=== PATIENT | female | born 1955 | race Caucasian/White ===

== ENCOUNTER 2022-11-05 08:53 | Emergency (ER) | payer BC, MEDICARE ==
[~2022-11-05] VITALS: Ht 154.9 cm; Wt 81.0 kg
[2022-11-05] MEDS ORDERED: NS 1,000 ML IV SCH (10:15)
[2022-11-05] MEDS ORDERED: KETOROLAC 30 MG/ML 1ML VIAL IV ONE (10:15)
[2022-11-05] MEDS: propofoL 200 MG/20 ML VIAL IV.PROC PRN ×4 (10:34→10:54)
[2022-11-05] MEDS ORDERED: PERC5TAB12 PO (12:05)
[2022-11-05 12:18] VITALS: BP 130/94; TEMP 96.9; O2SAT 97
[2022-11-05] MEDS ORDERED: HYDR-3713 PO (12:40)
== END 2022-11-05 12:25 | disposition home or self-care (01) ==
LOC: EDBD 08:53 → M ED 08:53
DX: S43.005A Unspecified dislocation of left shoulder joint, initial encounter (principal); W01.0XXA Fall on same level from slipping, tripping and stumbling without subsequent striking against object, initial encounter; Y92.002 Bathroom of unspecified non-institutional (private) residence as the place of occurrence of the external cause; Y93.E8 Activity, other personal hygiene; Y99.8 Other external cause status; I10 Essential (primary) hypertension; E78.5 Hyperlipidemia, unspecified; Z88.5 Allergy status to narcotic agent
CPT/HCPCS: 23655; 73020; 73030; 93041; 94760; 96374; 99152; 99284; J1885